=== PATIENT | female | born 1945 | race Caucasian/White ===

== ENCOUNTER → 2018-12-09 | Outpatient (CLI) | payer MEDICARE | LOC: RESP 21:00 | PROVIDERS: ATTEND Internal Medicine | DX: G47.33 Obstructive sleep apnea (adult) (pediatric) (principal); G47.36 Sleep related hypoventilation in conditions classified elsewhere; G47.61 Periodic limb movement disorder ==

== ENCOUNTER → 2018-12-09 | Outpatient (CLI) | payer SELFPAY | LOC: RESP 06:52 | PROVIDERS: ATTEND Internal Medicine | DX: G47.33 Obstructive sleep apnea (adult) (pediatric) (principal); G47.36 Sleep related hypoventilation in conditions classified elsewhere; G47.61 Periodic limb movement disorder ==